=== PATIENT | male | born 1935 | race Caucasian/White ===

== ENCOUNTER 2017-11-25 08:43 | Emergency (ER) | payer MEDICARE ==
[~2017-11-25] VITALS: Ht 180.3 cm; Wt 99.0 kg
[~2017-11-25 08:43] MED LIST: ADULT ASPIRIN E81 MG PO; ATENOLOL25 MG OR; AVODART0.5 MG OR; CEPHALEXIN500 MG; COUMADIN5 MG PO; EQ ASPIRIN325 MG OR; FLEXERIL10 MG PO; FLOMAX0.4 M1 PO; HYDROCHLOROT12.5 MG PO; LISINOP/HCTZ1 TA2 PO; LORTAB5 PO; LOVENOX100 MG/1 M SC; SIMVASTATIN20 MG PO; SIMVASTATIN80 MG OR; ST JOSEPH75 MG OR; WARFARIN2.5 MG PO; WARFARIN5 MG PO
[2017-11-25 11:22] LABS: HEMOGLOBIN 14.3 g/dl (14.0-18.0); IMMATURE GRANULOCYTES 0.5 % (0.0-1.0); MEAN CELL VOLUME 90.2 fL CALC (80.0-100.0); MEAN CORPUSCULAR HGB 29.3 pG CALC (26.0-32.0); MEAN CORPUSCULAR HGB CONC 32.5 g/L CALC (32.0-36.0); NEUT# 4.02 thou/uL (1.82-7.42); RED BLOOD COUNT 4.88 mill/uL (4.70-6.10); RED CELL DISTRI WIDTH 13.5 % (11.5-15.5)
[2017-11-25 11:52] VITALS: BP 162/92
== END 2017-11-25 12:05 | disposition home or self-care (01) ==
LOC: ED 08:43
PROVIDERS: Family Medicine
DX: S80.12XA Contusion of left lower leg, initial encounter (principal); R41.3 Other amnesia; Z86.718 Personal history of other venous thrombosis and embolism; I10 Essential (primary) hypertension; I25.10 Atherosclerotic heart disease of native coronary artery without angina pectoris; Z95.5 Presence of coronary angioplasty implant and graft